=== PATIENT | female | born 1980 | race Hispanic/Latino ===

== ENCOUNTER 2017-11-10 11:37 | Inpatient (IN) | payer OTHER ==
[2017-11-10 16:10] VITALS: BMI 25.2
[2017-11-10] MEDS ORDERED: Lactated Ringer's 1,000 ML IV SCH ×2 (16:15→17:45)
[2017-11-10] MEDS ORDERED: Nalbuphine 20 mg/ml Inj (1 ml) IVP ONE (16:15)
[2017-11-10 16:33] LABS: BASO % 0.2 % (0.0-2.0); HEMOGLOBIN 13.5 g/dL (12.0-16.0); LYMPH # 1.1 K/uL (1.0-4.3); LYMPH % 6.3 % (20.0-40.0); MEAN CELL VOLUME 88.7 fl (81.0-99.0); MEAN CORPUSCULAR HEMOGLOBIN 30.7 pg (27.0-31.0); MEAN CORPUSCULAR HGB CONC 34.7 g/dL (33.0-37.0); MONO # 0.3 K/uL (0.0-0.8); MONO % 1.6 % (0.0-10.0); NEUT # 16.7 K/uL (1.8-7.0); NEUT % 91.9 % (50.0-75.0); PLATELET COUNT 177 K/uL (130-400); RBC 4.39 Mil/uL (3.80-5.20); RED CELL DISTRIBUTION WIDTH 13.4 % (11.5-14.5); WHITE BLOOD COUNT 18.2 K/uL (4.8-10.8)
[2017-11-10] MEDS: Lactated Ringer's 1,000 ML IV SCH ×2 (17:25→21:58)
[2017-11-10 17:28] LABS: BANDS 1 % (0-2); TOTAL CELLS COUNTED 100
[2017-11-10 17:29] LABS: LYMPHOCYTE 7 % (20-50); MONOCYTE 3 % (0-10); NEUTROPHIL 89 % (42-75); PLATELET ESTIMATE NORMAL (NORMAL)
[2017-11-10] MEDS ORDERED: Fentanyl/Bupivacaine HCl 250 ML EPI ONE (17:40)
--- NOTE | 2017-11-10 20:17 | OBADHP ---
Datetime: 11/10/2017 12:28 Admit Comment, IP Provider: 37 y/o F at 39 weeks GA, RU 11/17/17 by LMP 02/10/17 and confirmed by 1st trim US, presents with uterine CTX that ramirez 4 hours ago. CTX's occurs every [address] for 30 seconds. FM are present. Denies vaginal bleeding, LOF, urinary complaints, fever, headache, N/V, CP, SOB or rash. NKDA PN Care: with Dr [facility]. OBGYN Hx: , abnormal pap smear on 2011. PMHx: denied PSHx: denied FHx: NC SHx: denies tobacco, alcohol or rec drugs. A/P: 37 y/o F with IUP at 39 weeks entering early labor. -FHT monitoring. -will observe for several minutes and determine admission. Case discussed with Dr Singer, OB hospitalist. [place] PGY-1. Pelvic Type - PN: Adequate Extremities - PN: Normal Abdomen - PN: Normal Back - PN: Normal Lungs - PN: Normal Heart - PN: Normal Thyroid - PN: Normal Neurologic - PN: Normal HEENT - PN: Normal General - PN: Normal FHR - Baseline A Provider: 135 IP Hx Assessment: The History has been Reviewed and is Current Vital Signs Provider: Reviewed IP Chief Complaint: Uterine contractions NICHD Variability Prov Fetus A: Moderate 6-25bpm NICHD Accel Fetus A IP Provider: 15X15 FHR Category Provider Fetus A: Category I Dilatation, Provider: 1 Effacement, Provider: 100 Station, Provider: 0 DTRs - PN: Normal EGA AdmitDate IP: 38.0 IP Adm Impression: Term, intrauterine IP Admit Plan: Observation/Evaluation
--- NOTE | 2017-11-10 20:20 | OBPN ---
Datetime: 11/10/2017 20:17 IP Progress Impression: Normal progression of labor; Reassuring heart rate IP Procedures: Sterile Vag Exam IP Progress Plan: Continue present management Contraction Comments Provider: q2-5min FHR - Baseline A Provider: 120s IP Progress Note Comment: Pt without complaints. s/p epidural. Continue current management. Both MWB/FWB reassuring at this time. Vital Signs Provider: Reviewed; Within Normal Limits NICHD Accel Fetus A IP Provider: 15X15 FHR Category Provider Fetus A: Category I NICHD Variability Prov Fetus A: Moderate 6-25bpm Dilatation, Provider: 6 Effacement, Provider: 100 Station, Provider: 0 NICHD Decel Fetus A IP Provider: None
--- NOTE | 2017-11-10 22:44 | OBPN ---
Datetime: 11/10/2017 22:39 IP Progress Impression: Normal progression of labor; Reassuring heart rate IP Procedures: Sterile Vag Exam IP Progress Plan: Continue present management Contraction Comments Provider: q2-5min FHR - Baseline A Provider: 140s IP Progress Note Comment: Labor progressing well. Small variable decelerations with good recovery. F etal heart tracing reassuring. Maternal well-being and well-being reassuring at this time. Cont inue current management. Vital Signs Provider: Reviewed; Within Normal Limits NICHD Accel Fetus A IP Provider: 15X15 NICHD Variability Prov Fetus A: Moderate 6-25bpm Dilatation, Provider: 9 Effacement, Provider: 100 Station, Provider: 0 NICHD Decel Fetus A IP Provider: Variable
[2017-11-10] MEDS ORDERED: Lidocaine 1% Inj (20ml) ONE (23:08)
[2017-11-10] MEDS ORDERED: Oxytocin 30 UNITS in Sodium Chloride 0.9% 500 ML IV ONE (23:15)
[2017-11-11] MEDS: Lactated Ringer's 1,000 ML IV SCH (02:51)
[2017-11-11] MEDS ORDERED: ceFAZolin IV 2 gm in Dextrose 2 GM/50 ML BAG IVPB ONE (04:39)
[2017-11-11] MEDS ORDERED: Lidocaine 2% PF (10 ml) Amp ONE ×2 (04:57→05:22)
[2017-11-11] MEDS ORDERED: EPINEPHrine 1 mg/ml (1:1000) Inj ONE (04:57)
[2017-11-11] MEDS ORDERED: Phenylephrine 10 mg/ml Inj ONE (05:34)
[2017-11-11] MEDS ORDERED: Morphine 1 mg/ml preservative-free Inj(Duramorph) ONE (06:08)
[2017-11-11] MEDS ORDERED: Bupivacaine HCl 0.25% PF (30 ml) Inj ONE (06:09)
[2017-11-11] MEDS ORDERED: Oxytocin 10 Units/ml Inj ONE (06:18)
[2017-11-11] MEDS ORDERED: Naloxone 0.4 mg/ml Inj (Adult) IVP PRN ×2 (06:50→12:18)
[2017-11-11] MEDS ORDERED: DiphenhydrAMINE 50 mg/ml Inj IVP PRN ×2 (06:50→12:18)
[2017-11-11] MEDS ORDERED: ceFAZolin IV 2 gm in Dextrose 2 GM/50 ML BAG IVPB STA (07:21)
--- NOTE | 2017-11-11 09:03 | OBPN ---
Datetime: 11/11/2017 04:30 IP Progress Impression: Arrest of dilatation/descent IP Informed Consent Obtain: Section Delivery; Risks, Benefits and Alternatives Discussed IP Procedures: Sterile Vag Exam IP Progress Plan: Deliver- Section FHR - Baseline A Provider: 140s IP Progress Note Comment: Patient actively pushing for 3-1/2 hours. No change in station, feta l head remained at 0 station. I discussed plan with the patient and recommended delivery du e to arrest of descent of head. After discussion of all options, patient agreed to plan for C-s ection delivery. Discussed with patient the risks, benefits, alternatives of delivery. All patient questions answered. Anesthesia notified NICHD Accel Fetus A IP Provider: 15X15 NICHD Variability Prov Fetus A: Moderate 6-25bpm Dilatation, Provider: 10 Effacement, Provider: 100 Station, Provider: 0 NICHD Decel Fetus A IP Provider: Variable
--- NOTE | 2017-11-11 09:15 | OBDS ---
DELIVERY PERSONNEL Delivery Doctor: Sheldon Singer MD Garment Form Assembler: ECroweRN Anesthesiologist: Veronica Bañuelos MD Resident: Dr. Gee PGY1 MATERNAL INFORMATION Delivery Anesthesia: Epidural Medications in Delivery: Pitocin 30 units in 500 mls/Pitocin 20 units in 1000 mls/Ancef 2 Estimated Blood Loss (ml): 1000 Placenta Cultured: No Maternal Complications: None Provider Comments: Primary low flap transverse section. Patient delivered viable infant male with Apgars of 8 and 9 at one and 5 minutes respectively. Nuc analy cord 1 reduced. Placenta delivered manually. Normal uterus, normal tubes and ovaries bilaterall y. Estimated blood loss 1000 mL Fluids 1800 mL lactated Ringer's Urine output 250 mL No complications LABOR SUMMARY EDC: 11/17/2017 00:00 No. Babies in Womb: 1 Attempted: No Labor Anesthesia: Epidural LABOR INFORMATION Reason for Induction: Not Applicable Onset of Labor: 11/10/2017 20:13 Complete Dilatation: 11/11/2017 00:52 Oxytocin: N/A Group B Beta Strep: Negative Antibiotics # of Doses: 1 Antibiotics Time of Last Dose: 0512 Steroids Given: None Reason Steroids Not Administered: Not Applicable MEMBRANES Membranes Rupture Method: Artificial Rupture of Membranes: 11/11/2017 05:31 Length of Rupture (hrs): 0.00 Amniotic Fluid Color: Clear Amniotic Fluid Amount: Small Amniotic Fluid Odor: Normal STAGES OF LABOR Stage 1 hrs: 4 Stage 1 min: 39 Stage 2 hrs: 4 Stage 2 min: 39 Stage 3 hrs: 0 Stage 3 min: 1 Total Time in Labor hrs: 9 Total Time in Labor min: 19 CSECTION DELIVERY Primary Indication: Prolonged Active Phase CSection Urgency: Non Elective CSection Incidence: Primary Labor: Labor Elective: Nonelective CSection Incision: Lower Uterine Transverse Uterine Closure: Double-layer closure BABY A INFORMATION Infant Delivery Date/Time: 11/11/2017 05:31 Method of Delivery: Born in Route : No : N/A Forceps: N/A Vacuum Extraction: N/A Shoulder Dystocia : No SHOULDER DYSTOCIA BABY A Infant Delivery Date/Time: 11/11/2017 05:31 PRESENTATION/POSITION BABY A Presentation: Cephalic Cephalic Presentation: Vertex Breech Presentation: N/A PLACENTA INFORMATION BABY A Placenta Delivery Time : 11/11/2017 05:32 Placenta Method of Delivery: Manual Removal Placenta Status: Delivered SCORES BABY A Heart Rate 1 min: >100 bpm Resp Effort 1 min: Good Cry Reflex Irritability 1 min: Cough or Sneeze or Pulls Away Muscle Tone 1 min: Active Motion Color 1 min: Blue/Pale Resuscitation Effort 1 min: N/A SCORE 1 MIN: 8 Heart Rate 5 min: >100 bpm Resp Effort 5 min: Good Cry Reflex Irritability 5 min: Cough or Sneeze or Pulls Away Muscle Tone 5 min: Active Motion Color 5 min: Body [place], Extremities Blue Resuscitation Effort 5 min: N/A SCORE 5 MIN: 9 INFANT INFORMATION BABY A Gestational Age at Delivery: 39.1 Gestational Status: Term Infant Outcome : Liveborn Condition : Stable Sex: Male IDENTIFICATION/MEDS BABY A ID Band Number: [id number] ID Band Location: Left Leg; Left Arm WEIGHT/LENGTH BABY A Infant Birthweight (gms): 3630 Weight (lb): 8 Infant Weight (oz): 0 CORD INFORMATION BABY A No. Cord Vessels: 3 Nuchal Cord : Around Neck x1, Loose Nuchal Cord Other: N/A True Knot: N/A Infant Cord pH Baby Arterial: N/A Infant Cord pH Baby Venous: N/A Cord Blood Taken: Yes Banking/Donate Info: N/A Infant Suction: Mouth; Nose (Annotations: Data stored by [facility] on behalf of user) ASSESSMENT BABY A Complications: None Physical Findings at Delivery: Within Normal Limits Respirations: Appears Normal Renewals Representative/ALS Called : No Infant Care By: Dr. [place]/Agnes BALLARD Transferred To: Remains with Mother
--- NOTE | 2017-11-11 09:48 | OP ---
PROCEDURE DATE: 11/11/2017 PREOPERATIVE DIAGNOSIS: Arrest of descent in active labor. POSTOPERATIVE DIAGNOSIS: Arrest of descent in active labor. OPERATION PERFORMED: Primary low-flap transverse section via Pfannenstiel incision. SURGEON: Dr. Loy Singer. SALES OPERATIONS ASSOCIATE: Dr. Gee. ANESTHESIOLOGIST: Dr. Bñauelos. TYPE OF ANESTHESIA: Epidural. OPERATIVE FINDINGS: Viable infant male with Apgars of 8 and 9 at one and five minutes respectively. Nuchal cord x1 reduced. Normal uterus, normal tubes and ovaries bilaterally. ESTIMATED BLOOD LOSS: 1000 mL. FLUIDS: 1800 mL of Lactated Ringer's. URINE OUTPUT: 250 mL of clear urine at the end of procedure. DESCRIPTION OF PROCEDURE: The patient was taken to the operating room where epidural anesthesia was found to be adequate. The patient was prepped and draped in the normal sterile fashion in the dorsal supine position with a leftward tilt. A Pfannenstiel skin incision was made with a scalpel. This was carried down through to the underlying layer of fascia with the scalpel. Midline defect was made in the fascial layer with the scalpel. The fascial incision was then extended bilaterally sharply with curved Lord scissors. The fascial layer was from the underlying rectus muscles both bluntly and sharply with curved Lord scissors. The rectus muscles were at the midline. The peritoneum was then identified, tented up with Shahana clamps x2, and entered sharply with Metzenbaum scissors. This peritoneal incision was then extended superiorly and inferiorly with good visualization of the urinary bladder. A bladder blade was inserted into the abdomen. The vesicouterine peritoneum was then identified, tented up with Shahana clamps x2, and entered sharply with Metzenbaum scissors. This peritoneal incision was then extended bilaterally with Metzenbaum scissors. The bladder flap was created digitally. The [place] retractors were placed over the urinary bladder. The uterus was incised with a scalpel. The uterine incision was extended bilaterally bluntly. The infant's head was delivered atraumatically. Nose and mouth were suctioned with bulb suction. The remainder of the infant was delivered without complication. The placenta was removed manually. The uterus was cleared of all clots and debris. At this point, bilateral extensions of the uterine incisions were seen bilaterally on the lateral aspect of the uterus. These extensions were repaired with 0 Vicryl in a running, locked fashion bilaterally. After repair of bilateral extensions, the remainder of the uterine incision was repaired. The uterine incision was repaired with 0 Vicryl in a running, locked fashion. Second layer of the same suture was used to imbricate the first and to obtain excellent hemostasis. Reinspection of the uterine incision proved excellent hemostasis. The abdomen and pelvis were irrigated with copious amounts of warm normal saline. Reinspection of the uterine incision proved excellent hemostasis. All instruments were removed from the patient. The peritoneal layer was closed with a running stitch of 2-0 chromic. The rectus muscles were reapproximated with a running stitch of 2-0 chromic. The fascial layer was closed with a running stitch of 0 Vicryl. Subcutaneous tissue was reapproximated with a running stitch of 2-0 plain. The skin was closed with a subcutaneous stitch of 3-0 Vicryl. The patient tolerated the procedure well. All sponge, lap count, and needle counts were correct x2. The patient was given 2 g of Ancef just prior to the beginning of the procedure. There were no complications. The patient was taken to the recovery room in awake and stable condition. Loy Singer MD
[2017-11-11] MEDS ORDERED: Lactated Ringer's 1,000 ML IV SCH (12:18)
[2017-11-11] MEDS ORDERED: Oxycodone/Acetaminophen 5/325 mg Tab PO PRN (12:39)
[2017-11-12] MEDS: Oxycodone/Acetaminophen 5/325 mg Tab PO PRN ×2 (02:32→08:01)
[2017-11-12 06:23] LABS: HEMOGLOBIN 8.3 g/dL (12.0-16.0); MEAN CELL VOLUME 90.9 fl (81.0-99.0); MEAN CORPUSCULAR HEMOGLOBIN 30.6 pg (27.0-31.0); MEAN CORPUSCULAR HGB CONC 33.6 g/dL (33.0-37.0); RBC 2.71 Mil/uL (3.80-5.20); RED CELL DISTRIBUTION WIDTH 13.7 % (11.5-14.5); WHITE BLOOD COUNT 15.8 K/uL (4.8-10.8)
--- NOTE | 2017-11-12 07:09 | OBPPN ---
Datetime: 11/12/2017 07:01 PP Pain Prov: Within normal limits PP Nausea Prov: Denies PP Flatus Prov: No PP BM Prov: No PP Abdomen/Uterus Prov: Normal PP Lochia Prov: Normal PP Extremities Prov: Normal PP C/S Incision Prov: Normal PP Progress Prov: Normal PP Comments Phys Exam Prov: Incision w/ bandage in place PP Impression Prov: Normal progression PP Plan Prov: Continue present management PP Progress Note Prov: POD 1 s/p c/s, doing well, breast feeding OOB today Vital Signs Provider PP: Reviewed; Within Normal Limits
--- NOTE | 2017-11-13 11:23 | OBPPN ---
Datetime: 11/13/2017 11:18 PP Pain Prov: Within normal limits PP Nausea Prov: Denies PP Flatus Prov: Yes PP BM Prov: No PP Breasts Prov: Not Done PP Heart Prov: Normal PP Lungs Prov: Normal PP Abdomen/Uterus Prov: Normal PP Lochia Prov: Normal PP Vulva/Perineum Prov: Normal PP CVA Tenderness Prov: Not Done PP Extremities Prov: Normal PP C/S Incision Prov: Normal PP Progress Prov: Normal PP Impression Prov: Normal progression PP Plan Prov: Continue present management PP Progress Note Prov: She would like stool softener. No BM. eating well. ambulating well. H/H 05/03 A: S/P C-sectoin day 2 anemia - asymptomatic PLAN: cont post op care; Colace PO IP PP Procedures: None Vital Signs Provider PP: Reviewed; Within Normal Limits
--- NOTE | 2017-11-14 12:04 | OBDCSUM ---
Datetime: 11/14/2017 08:28 Discharged to, Provider: Home Follow up at, Provider: Emmanuel Disch Instr Activity: Normal activity; May Shower Disch Instr Diet: Regular Discharge Instructions, Provider: Routine instructions given Discharge Diagnosis, Provider: Term Delivered Discharge Time: 11/14/2017 11:00 Follow up in weeks, Provider: 1-2 Weeks Disch Referrals: None Contraception discussed, Prov: No Disch Activity Restrictions: No exercising; No lifting; No driving; Minimize stair-climbing; No sexu al activity; Nothing in vagina - [place], tampons, douche Discharge Comment, Provider: Patient cleared for discharge I agree with the note
--- NOTE | 2017-11-14 12:04 | OBPPN ---
Datetime: 11/14/2017 08:46 PP Pain Prov: Within normal limits PP Nausea Prov: Denies PP Flatus Prov: Yes PP BM Prov: Yes PP Breasts Prov: Normal PP Heart Prov: Normal PP Lungs Prov: Normal PP Abdomen/Uterus Prov: Normal PP Lochia Prov: Normal PP Vulva/Perineum Prov: Normal PP CVA Tenderness Prov: Normal PP Extremities Prov: Normal PP C/S Incision Prov: Normal PP Comments Phys Exam Prov: Surgical incision: clean, intact and dry. PP Impression Prov: Normal progression PP Plan Prov: Discharge PP Progress Note Prov: 37 y/o F s/p with no complications, reports feeling well. Pain is c otrolled with medications. Pt pumping breastmilk. Pt passing gasses and had a bowel movement. Pt afeb rile, tolerating PO and able to ambulate. A/P: 37 y/o F on POD #3, s/p , stable. -Will discharge later today. -Anemia, Ferralet prescribed. -F/U with [facility] within 2 weeks. -ER precautions reviewed with pt. Case discussed with Dr Celaya, OB senior internet sales consultant. Dr Swartz PGY-1 The patient was seen with the resident and I agree with the note IP PP Procedures: None Vital Signs Provider PP: Reviewed
[2017-11-14 12:50] VITALS: BP 130/84; PULSE 76; RESP 20; TEMP 98.9
== END 2017-11-14 11:41 | disposition home or self-care (01) | DRG 766 ==
LOC: H.EROB2 11:37 → H.L&D 16:10 → H.OB/GYN 11-11 13:31
PROVIDERS: ADMIT Obstetrics & Gynecology; ATTEND Obstetrics & Gynecology
PROC: 4A1HXCZ Monitoring of Products of Conception, Cardiac Rate, External Approach (ICD-10-PCS; 2017-11-10)
PROC: 10D00Z1 Extraction of Products of Conception, Low, Open Approach (ICD-10-PCS; principal; 2017-11-11)
DX: O76 Abnormality in fetal heart rate and rhythm complicating labor and delivery (principal); O69.81X0 Labor and delivery complicated by cord around neck, without compression, not applicable or unspecified; O63.1 Prolonged second stage (of labor); O62.0 Primary inadequate contractions; O62.1 Secondary uterine inertia; O90.81 Anemia of the puerperium; D64.9 Anemia, unspecified; O09.523 Supervision of elderly multigravida, third trimester; Z37.0 Single live birth; Z3A.39 39 weeks gestation of pregnancy